=== PATIENT | male | born 1955 | race Caucasian/White ===

== ENCOUNTER 2018-04-25 11:29 | Observation (INO) | payer OTHER ==
[~2018-04-25] VITALS: Ht 174 cm; Wt 72.3 kg
[2018-04-25] MEDS ORDERED: ASPIRIN 81 MG TAB.CHEW PO ONE (11:45)
[2018-04-25 12:02] LABS: BASO % 1 % (0-3); EOS # 0.2 x10^3/uL (0.0-0.7); EOS % 3 % (0-3); HEMATOCRIT 43.6 % (39.0-53.0); HEMOGLOBIN 15.3 g/dL (13.0-17.5); LYMPH # 1.1 x10^3/uL (1.0-4.8); LYMPH % 16 % (24-48); MEAN CORPUSCULAR HEMOGLOBIN 30 pg (25-35); MEAN CORPUSCULAR HGB CONC 35 g/dL (31-37); MEAN CORPUSCULAR VOLUME 85 fL (79-100); MONO # 0.7 x10^3/uL (0.0-1.1); MONO % 10 % (0-9); NEUT # 4.9 x10^3uL (1.8-7.7); NEUT % 70 % (31-73); PLATELET COUNT 198 x10^3/uL (140-400); RED BLOOD COUNT 5.14 x10^6/uL (4.30-5.70); RED CELL DISTRIBUTION WIDTH 14.7 % (11.5-14.5); WHITE BLOOD COUNT 7.1 x10^3/uL (4.0-11.0)
--- NOTE | 2018-04-25 12:19 | EKG ---
[address] [address] Test Date: 2018-04-25 Test Time: 11:31:21 Pat Name: ALEYDA LONDON Department: Room: Gender: M Staff Psychiatrist: [facility] : 1955 Requested By: SERGO YOST Order Number: [id number] Reading MD: Trell Mcdonald MD Measurements Intervals E[place] Rate: 73 P: 62 IA: 182 QRS: -45 QRSD: 106 T: 78 QT: 388 QTc: 431 Interpretive Statements SINUS RHYTHM VENTRICULAR PREMATURE COMPLEX(ES) Electronically Signed On 04-27-2018 16:05:19 CDT by Trell Mcdonald MD
[2018-04-25 12:21] LABS: ALBUMIN 3.9 g/dL (3.4-5.0); ALBUMIN/GLOBULIN RATIO 1.3 (1.0-1.7); CALCIUM 8.9 mg/dL (8.5-10.1); CREATININE 1.3 mg/dL (0.7-1.3); GFR 55.8; MAGNESIUM 1.8 mg/dL (1.8-2.4); POTASSIUM 4.6 mmol/L (3.5-5.1); TOTAL BILIRUBIN 0.5 mg/dL (0.2-1.0)
--- NOTE | 2018-04-25 12:36 | RAD ---
Chest radiograph 04/25/2018 11:38 AM INDICATION: Chest pain, shortness of air COMPARISON: None available TECHNIQUE: Portable upright frontal view of the chest is provided. FINDINGS: The cardiomediastinal silhouette is within normal limits. Median sternotomy changes are present. There are no pleural effusions. There is no pulmonary vascular congestion. There is no pneumothorax. The lungs are clear. No significant osseous abnormality is identified. IMPRESSION: No acute cardiopulmonary process. Electronically signed by: Paige Serrano MD (04/25/2018 12:32 PM) [facility]
--- NOTE | 2018-04-25 12:56 | PHYS DOC ---
Past History Past Medical History: Angina, Anxiety, Depression, Diabetes, Hypertension Past Surgical History: Coronary Bypass Surgery, Knee Replacement, Tonsillectomy Alcohol Use: None Drug Use: None Adult General Chief Complaint Chief Complaint: CHEST PAIN HPI HPI 62-year-old male patient with history of hypertension, coronary artery disease status post CABG and smoking sent from primary care physician office because of chest pain. Patient complaining of aching pain in left side of chest and shoulder for 1.5 months as a mild pain and rated his pain over 10. Patient complaining of episodes of exertional sharp pain that happened once or twice a day and is a last about 40 minutes without shortness of breath, nausea, dizziness, palpitation, fever and chills. Patient complaining of intermittent episodes of bilateral hand numbness during episodes of shortness of breath and states he feels confused and complaining of generalized weakness for the last few days. Patient 324 mg of aspirin at primary care physician office. Patient denies family history of coronary artery disease. Patient had CABG years ago and then seen by a concrete carpenter for the last 3 years. Review of Systems Review of Systems Constitutional: Denies fever or chills, reports generalized weakness[] Eyes: Denies change in visual acuity, redness, or eye pain [] HENT: Denies nasal congestion or sore throat [] Respiratory: Denies cough or shortness of breath [] Cardiovascular: No additional information not addressed in HPI [] GI: Denies abdominal pain, nausea, vomiting, bloody stools or diarrhea [] : Denies dysuria or hematuria [] Musculoskeletal: Denies back pain or joint pain [] Integument: Denies rash or skin lesions [] Neurologic: Denies headache, focal weakness or sensory changes [] Endocrine: Denies polyuria or polydipsia [] All other systems were reviewed and found to be within normal limits, except as documented in this note. Current Medications Current Medications Current Medications Medications (Trade) Dose Ordered Sig/Mayra Start Time Stop Time Status Last Admin Dose Admin Aspirin (Children'S Aspirin) 324 mg 1X ONCE 04/25/18 11:45 04/25/18 11:52 DC Allergies Allergies Allergies Coded Allergies Type Severity Reaction Last Updated Verified codeine Allergy Unknown 04/25/18 Yes Physical Exam Physical Exam Constitutional: Well developed, well nourished, milddistress, non-toxic appearance. [] HENT: Normocephalic, atraumatic, bilateral external ears normal, oropharynx moist, no oral exudates, nose normal. [] Eyes: PERRLA, EOMI, conjunctiva normal, no discharge. [] Neck: Normal range of motion, no tenderness, supple, no stridor. [] Cardiovascular:Heart rate regular rhythm, no murmur [] Lungs & Thorax: Bilateral breath sounds clear to auscultation [] Abdomen: Bowel sounds normal, soft, no tenderness, no masses, no pulsatile masses. [] Skin: Warm, dry, no erythema, no rash. [] Back: No tenderness, no CVA tenderness. [] Extremities: No tenderness, no cyanosis, no clubbing, ROM intact, no edema. [] Neurologic: Alert and oriented X 3, normal motor function, normal sensory function, no focal deficits noted. [] Psychologic: Affect normal, judgement normal, mood normal. [] Current Patient Data Vital Signs Vital Signs Date Time Temp Pulse Resp B/P (MAP) Pulse Ox O2 Delivery O2 Flow Rate FiO2 04/25/18 11:29 97.5 62 14 100 Room Air Lab Results Laboratory Tests Test 04/25/18 11:40 White Blood Count 7.1 x10^3/uL (4.0-11.0) Red Blood Count 5.14 x10^6/uL (4.30-5.70) Hemoglobin 15.3 g/dL (13.0-17.5) Hematocrit 43.6 % (39.0-53.0) Mean Corpuscular Volume 85 fL (79-100) Mean Corpuscular Hemoglobin 30 pg (25-35) Mean Corpuscular Hemoglobin Concent 35 g/dL (31-37) Red Cell Distribution Width 14.7 % (11.5-14.5) H Platelet Count 198 x10^3/uL (140-400) Neutrophils (%) (Auto) 70 % (31-73) Lymphocytes (%) (Auto) 16 % (24-48) L Monocytes (%) (Auto) 10 % (0-9) H Eosinophils (%) (Auto) 3 % (0-3) Basophils (%) (Auto) 1 % (0-3) Neutrophils # (Auto) 4.9 x10^3uL (1.8-7.7) Lymphocytes # (Auto) 1.1 x10^3/uL (1.0-4.8) Monocytes # (Auto) 0.7 x10^3/uL (0.0-1.1) Eosinophils # (Auto) 0.2 x10^3/uL (0.0-0.7) Basophils # (Auto) 0.0 x10^3/uL (0.0-0.2) Prothrombin Time 11.0 SEC (9.4-11.4) Prothrombin Time INR 1.1 (0.9-1.1) PTT 30 SEC (23-33) Sodium Level 127 mmol/L (136-145) L Potassium Level 4.6 mmol/L (3.5-5.1) Chloride Level 94 mmol/L (98-107) L Carbon Dioxide Level 28 mmol/L (21-32) Anion Gap 5 (6-14) L Blood Urea Nitrogen 9 mg/dL (8-26) Creatinine 1.3 mg/dL (0.7-1.3) Estimated GFR (Cockcroft-Gault) 55.8 BUN/Creatinine Ratio 7 (6-20) Glucose Level 126 mg/dL (70-99) H Calcium Level 8.9 mg/dL (8.5-10.1) Magnesium Level 1.8 mg/dL (1.8-2.4) Total Bilirubin 0.5 mg/dL (0.2-1.0) Aspartate Amino Transferase (AST) 23 U/L (15-37) Alanine Aminotransferase (ALT) 25 U/L (16-63) Alkaline Phosphatase 81 U/L (46-116) Creatine Kinase 304 U/L (39-308) Creatine Kinase MB (Mass) 11.8 ng/mL (0.0-3.6) H Creatine Kinase MB Relative Index 3.9 % (0-4) Troponin I Quantitative < 0.017 ng/mL (0-0.055) XA-Tji-S-Type Natriuretic Peptide 1086 pg/mL (0-124) H Total Protein 7.0 g/dL (6.4-8.2) Albumin 3.9 g/dL (3.4-5.0) Albumin/Globulin Ratio 1.3 (1.0-1.7) Lipase 132 U/L (73-393) EKG EKG EKG interpreted by me. EKG at 1131 showed normal sinus rhythm at rate of 73, PVCs, left atrial abnormalities, abnormal left axis deviation, left anterior fascicular block, left ventricular hypertrophy, T-wave abnormality in lateral leads, poor R-wave progress in anteroseptal leads[] Radiology/Procedures Radiology/Procedures [][address] [address] IMAGING REPORT Signed PATIENT: ALEYDA LONDON ACCOUNT: [id number] : 1955 LOCATION: ER AGE: 62 SEX: M EXAM STATUS: REG ER ORD. PHYSICIAN: SERGO YOST MD REASON: chest pain PROCEDURE: PORTABLE CHEST 1V Chest radiograph 04/25/2018 11:38 AM INDICATION: Chest pain, shortness of air COMPARISON: None available TECHNIQUE: Portable upright frontal view of the chest is provided. FINDINGS: The cardiomediastinal silhouette is within normal limits. Median sternotomy changes are present. There are no pleural effusions. There is no pulmonary vascular congestion. There is no pneumothorax. The lungs are clear. No significant osseous abnormality is identified. IMPRESSION: No acute cardiopulmonary process. Electronically signed by: Sathish Hannon MD (04/25/2018 12:32 PM) [facility] DICTATED AND SIGNED BY: SATHISH HANNON MD DATE: 04/25/18 1232 CC: SERGO YOST MD; CHIP ORELLANA MD ~ Course & Med Decision Making Course & Med Decision Making Pertinent Labs and Imaging studies reviewed. (See chart for details) Evaluation of patient in ER showed 62-year-old male patient complaining of chronic chest pain and confusion and generalized weakness. Patient had unremarkable physical exam. Labs showed sodium of 127 and CK-MB of 11.5 unremarkable troponin and CK. Patient chest pain but he was in ER. Plan to admit patient to hospitalist with diagnosis of hyponatremia and chest pain and elevation of CK-MB. Dr. Alvarenga informed at 1255 and agreed with an of admission. Dragon Disclaimer Dragon Disclaimer This electronic medical record was generated, in whole or in part, using a voice recognition dictation system. Departure Departure: Impression: Primary Impression: Hyponatremia Additional Impressions: Chest pain Coronary artery disease Elevated CK-MB level Tobacco abuse Tobacco abuse counseling Disposition: 09 ADMITTED INPATIENT (At 1255) Admitting Physician: German Alvarenga Condition: IMPROVED Referrals: CHIP ORELLANA MD (PCP) Problem Qualifiers SERGO YOST MD Apr 25, 2018 12:56
[2018-04-25] MEDS: IV NORMAL SALINE 1,000ML 500 ML IV SCH ×2 (13:24→21:29)
[2018-04-25 16:17] VITALS: BP 177/79
--- NOTE | 2018-04-25 17:58 | NUR ---
NURSING ADMIT NOTE: Patient arrived to room 117 via cart and accompanied by EMS personnel. Patient was oriented to room, bathroom, lights, call light, bed controls, and TV remote.
[2018-04-25] MEDS ORDERED: NAPR-677 PO (18:09)
[2018-04-25] MEDS ORDERED: METO10TA81 PO (18:09)
[2018-04-25] MEDS ORDERED: CHOL10003 PO (18:09)
[2018-04-25] MEDS ORDERED: CITA20TA6 PO (18:09)
[2018-04-25] MEDS ORDERED: SITA1TAB11 PO (18:09)
[2018-04-25] MEDS ORDERED: SIMV20TA3 PO (18:09)
[2018-04-25 19:00] VITALS: BP 178/62
[2018-04-25] MEDS ORDERED: SIMVASTATIN 20 MG TABLET PO SCH (21:00)
[2018-04-25] MEDS ORDERED: NON FORMULARY ITEM (Sitagliptin Phos/Metformin Hcl (Janumet 50-1,000 Mg Tablet) 1 TAB) PO SCH (21:00)
[2018-04-25] MEDS: METOCLOPRAMIDE 5 MG TABLET PO SCH (21:26)
[2018-04-25] MEDS: CITALOPRAM 20 MG TABLET. PO SCH (21:26)
[2018-04-25 23:00] VITALS: BP_SYST 142; BP_SYST 185; BP_DIAS 52; BP_DIAS 85
[2018-04-26] VITALS (7 sets, daily range): BP systolic 140–202; BP diastolic 72–98
[2018-04-26] MEDS: IV NORMAL SALINE 1,000ML 500 ML IV SCH ×2 (02:20→13:13)
[2018-04-26] MEDS ORDERED: METO25TA4 PO (06:46)
[2018-04-26] MEDS: metFORMIN 500 MG TABLET PO SCH ×2 (08:30→17:41)
[2018-04-26] MEDS: CHOLECALCIFEROL (VITAMIN D3) 1,000 UNIT TABLET PO SCH (08:30)
[2018-04-26] MEDS: METOCLOPRAMIDE 5 MG TABLET PO SCH ×2 (08:30→21:00)
[2018-04-26] MEDS: LINAGLIPTIN 5 MG TABLET PO SCH (08:30)
[2018-04-26] MEDS: METOPROLOL TART IMMED RELEASE 25 MG TABLET PO SCH ×2 (08:32→21:01)
[2018-04-26] MEDS: amLODIPine BESYLATE 10 MG TABLET PO SCH (09:16)
--- NOTE | 2018-04-26 11:26 | PDOC2 ---
CONSULT Date of Admission DATE: 04/26/18 TIME: 11:23 Reason for Consult: cp Problem List Problems Medical Problems: (1) Chest pain Status: Acute (2) Coronary artery disease Status: Acute (3) Elevated CK-MB level Status: Acute (4) Hyponatremia Status: Acute (5) Tobacco abuse Status: Acute (6) Tobacco abuse counseling Status: Acute Cardiovascular: CAD, HTN, hyperipidemia, Other (carotid stenosis) Endocrine: Diabetes Past Surgical History knee surgery, CABG 5 years ago Family History premature coronary disease in brother, parents with CAD Social History + smoker, denies significant ETOH or illicit drugs. Current Medications Current Medications Aspirin (Children'S Aspirin) 324 mg 1X ONCE PO ; Start 04/25/18 at 11:45; Stop 04/25/18 at 11:52; Status DC Sodium Chloride 500 ml @ 75 mls/hr Q6H40M IV Last administered on 04/25/18at 21 :29; Start 04/25/18 at 13:00; Stop 04/26/18 at 12:59 Vitamin D (Vitamin D3) 1,000 unit DAILY PO Last administered on 04/26/18at 08:30 ; Start 04/26/18 at 09:00 Citalopram Hydrobromide (CeleXA) 20 mg HS PO Last administered on 04/25/18at 21: 26; Start 04/25/18 at 21:00 Metoclopramide HCl (Reglan) 5 mg BID PO Last administered on 04/26/18at 08:30; Start 04/25/18 at 21:00 Simvastatin (Zocor) 20 mg HS PO Last administered on 04/25/18at 21:26; Start at 21:00 Non-Formulary Medication (Sitagliptin Phos/Metformin Hcl (Janumet 50-1,000 Mg Tablet)) 1 tab BID PO ; Start 04/25/18 at 21:00; Stop 04/25/18 at 21:00; Status DC Metformin HCl (Glucophage) 1,000 mg BIDWMEALS PO Last administered on at 08:30; Start 04/26/18 at 08:00 Linagliptin (Tradjenta) 5 mg DAILY PO Last administered on 04/26/18at 08:30; Start 04/26/18 at 09:00 Metoprolol Tartrate (Lopressor) 12.5 mg BID PO Last administered on 04/26/18at 08:32; Start 04/26/18 at 09:00 Amlodipine Besylate (Norvasc) 10 mg DAILY PO Last administered on 04/26/18at 09: 16; Start 04/26/18 at 09:00 Active Scripts Active Reported Metoprolol Tartrate 25 Mg Tablet 12.5 Mg PO BID Vitamin D3 (Cholecalciferol (Vitamin D3)) 1,000 Unit Tablet 1 Tab PO DAILY Naproxen Sodium 550 Mg Tablet 550 Mg PO Citalopram Hbr (Citalopram Hydrobromide) 20 Mg Tablet 20 Mg PO HS Reglan (Metoclopramide Hcl) 10 Mg Tablet 5 Mg PO BID Simvastatin 20 Mg Tablet 20 Mg PO BID Janumet 50-1,000 Mg Tablet (Sitagliptin Phos/Metformin Hcl) 1 Each Tablet 1 Tab PO BID Allergies: Coded Allergies: codeine (Verified Allergy, Unknown, 04/25/18) Review of System as per HPI or negative General: Alert, Oriented X3, Cooperative, No acute distress HEENT: Atraumatic, EOMI, Mucous membr. moist/pink, Other (No carotid bruits) Heart: Regular rate (irregular rhythm), Normal S1, Normal S2 Abdomen: Normal bowel sounds, Soft, No tenderness Extremities: No cyanosis, No edema, Normal pulses Neuro: Normal speech, Strength at 5/5 X4 ext Psych/Mental Status: Mental status NL, Mood NL VITALS Vital Signs Date Time Temp Pulse Resp B/P (MAP) Pulse Ox O2 Delivery O2 Flow Rate FiO2 04/26/18 11:08 97.6 75 20 192/95 (127) 96 Room Air Labs Laboratory Tests Test 04/25/18 11:40 04/25/18 15:15 04/25/18 17:18 04/25/18 18:50 White Blood Count 7.1 x10^3/uL (4.0-11.0) Red Blood Count 5.14 x10^6/uL (4.30-5.70) Hemoglobin 15.3 g/dL (13.0-17.5) Hematocrit 43.6 % (39.0-53.0) Mean Corpuscular Volume 85 fL (79-100) Mean Corpuscular Hemoglobin 30 pg (25-35) Mean Corpuscular Hemoglobin Concent 35 g/dL (31-37) Red Cell Distribution Width 14.7 % (11.5-14.5) Platelet Count 198 x10^3/uL (140-400) Neutrophils (%) (Auto) 70 % (31-73) Lymphocytes (%) (Auto) 16 % (24-48) Monocytes (%) (Auto) 10 % (0-9) Eosinophils (%) (Auto) 3 % (0-3) Basophils (%) (Auto) 1 % (0-3) Neutrophils # (Auto) 4.9 x10^3uL (1.8-7.7) Lymphocytes # (Auto) 1.1 x10^3/uL (1.0-4.8) Monocytes # (Auto) 0.7 x10^3/uL (0.0-1.1) Eosinophils # (Auto) 0.2 x10^3/uL (0.0-0.7) Basophils # (Auto) 0.0 x10^3/uL (0.0-0.2) Prothrombin Time 11.0 SEC (9.4-11.4) Prothromb Time International Ratio 1.1 (0.9-1.1) Activated Partial Thromboplast Time 30 SEC (23-33) Sodium Level 127 mmol/L (136-145) Potassium Level 4.6 mmol/L (3.5-5.1) Chloride Level 94 mmol/L (98-107) Carbon Dioxide Level 28 mmol/L (21-32) Anion Gap 5 (6-14) Blood Urea Nitrogen 9 mg/dL (8-26) Creatinine 1.3 mg/dL (0.7-1.3) Estimated GFR (Cockcroft-Gault) 55.8 BUN/Creatinine Ratio 7 (6-20) Glucose Level 126 mg/dL (70-99) Calcium Level 8.9 mg/dL (8.5-10.1) Magnesium Level 1.8 mg/dL (1.8-2.4) Total Bilirubin 0.5 mg/dL (0.2-1.0) Aspartate Amino Transf (AST/SGOT) 23 U/L (15-37) Alanine Aminotransferase (ALT/SGPT) 25 U/L (16-63) Alkaline Phosphatase 81 U/L (46-116) Creatine Kinase 304 U/L (39-308) Creatine Kinase MB (Mass) 11.8 ng/mL (0.0-3.6) Creatine Kinase MB Relative Index 3.9 % (0-4) Troponin I Quantitative < 0.017 ng/mL (0-0.055) < 0.017 ng/mL (0-0.055) < 0.017 ng/mL (0-0.055) DD-Vmb-H-Type Natriuretic Peptide 1086 pg/mL (0-124) Total Protein 7.0 g/dL (6.4-8.2) Albumin 3.9 g/dL (3.4-5.0) Albumin/Globulin Ratio 1.3 (1.0-1.7) Lipase 132 U/L (73-393) Glucose (Fingerstick) 84 mg/dL (70-99) Test 04/26/18 07:25 Glucose (Fingerstick) 90 mg/dL (70-99) Images EKG sinus rhythm, PVCs, LAFB, non specific changes CXR - no acute abn Assessment/Plan 1. chest pain -[place] ruled out. No acute EKG changes. 2. CAD, CABG status 5 years ago. 3. carotid disease 4. accelerated hypertension 5. hyperlipidemia 6. diabetes mellitus 7. tobaccoism Suggest echocardiogram for LV function. Add lisinopril for blood pressure control in addition to norvasc which was added this am. Hydralazine PRN. Add aspirin, check lipids. Change zocor to lipitor. Carotid sono. Suggest MPI in am to eval for any progression of coronary disease unless significant abnormalities on echo or other testing requiring more invasive evaluation. Smoking cessation advised. MINERVA [facility] NURSE Apr 26, 2018 11:26
[2018-04-26] MEDS ORDERED: hydrALAZINE 20 MG/ML VIAL. IV PRN (11:45)
[2018-04-26] MEDS: ASPIRIN ENTERIC COATED 81 MG TABLET.DR. PO SCH (13:09)
[2018-04-26] MEDS: LISINOPRIL 5 MG TABLET. PO SCH (13:10)
[2018-04-26 14:47] LABS: CALCIUM 8.9 mg/dL (8.5-10.1); CREATININE 1.2 mg/dL (0.7-1.3); GFR 61.1; POTASSIUM 4.6 mmol/L (3.5-5.1)
--- NOTE | 2018-04-26 14:55 | HP ---
ADMIT DATE: 04/25/2018 HISTORY OF PRESENT ILLNESS: The patient stability is a 62-year-old male patient who presented to the Emergency Room with a complaint of recurrent episode of chest pain, mostly in the left side of the chest and shoulder for the last 1-1/2 months as a mild pain. He also complained of episodes of exertional chest pain that happened once or twice a day, and lasts up to 40 minutes without shortness of breath, nausea, vomiting, palpitation, fever, chills or diaphoresis. He also complained of episode of bilateral hand numbness during episode of shortness of breath and stated that he feels confused and complaining of generalized weakness for the last few days. He received 325 mg of aspirin from his primary care physician and was sent to the Emergency Room for evaluation. PAST MEDICAL HISTORY: Significant for hypertension, hyperlipidemia, has also coronary artery disease, status post CABG about 5 years ago. He has also history of diverticulitis. PAST SURGICAL HISTORY: Significant for tonsillectomy and right knee surgery and left carotid endarterectomy, coronary artery bypass graft surgery, EGD, and colonoscopy. ALLERGIES: HE IS ALLERGIC TO CODEINE. MEDICATIONS: He was on following medications: He is on simvastatin 20 mg at bedtime, metoprolol tartrate 25 mg twice a day. He is on naproxen 500 mg twice a day, citalopram hydrobromide 20 mg once a day, metoclopramide 10 mg twice a day, sitagliptin phosphate/metformin for Januvia mg twice a day and cholecalciferol 1000 international units once a day. FAMILY HISTORY: He has 4 sisters and 1 brother. His brother is known to have hypertension. One sister has diabetes and the other sister has multiple sclerosis. His father at age of 75 because of complication of Parkinson's disease and diabetes mellitus. His mother is still alive at age of ____ and is known to have diabetes and congestive heart failure. SOCIAL HISTORY: He is , has 2 daughters and one son. One of his daughters and grandchildren live with him. He smoked for 30 years before his open heart surgery, quit for 4 years and started smoking again about 2 years ago after his has , he smokes about half-a-pack a day. Does not drink alcohol. 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 REVIEW OF SYSTEMS: The patient denied any blurring of vision, cataract, glaucoma or macular degeneration. Denied any earache, tinnitus or sensorineural deafness. Denied any nosebleeds, stuffy nose or postnasal drip. Denied any sore throat, sore tongue, toothache, hoarseness. He denied any nausea, vomiting, diarrhea or constipation. Denied any hematemesis, melena or hematochezia. Denied any dysuria, frequency or hematuria. Denied any chest pain or shortness of breath. Denied any dysuria, frequency, or hematuria. Did complain of recurrent episode of chest pain and shortness of breath but denied any orthopnea or paroxysmal nocturnal dyspnea. Denied any cough, phlegm or hemoptysis. Denied any nausea or vomiting. Denied any diaphoresis. PHYSICAL EXAMINATION: GENERAL: On arrival to the Emergency Room, he looked well and was clearly in no apparent respiratory distress. He was pale, but no jaundice, cyanosis, or thyromegaly. No jugular venous distension. No limb edema. VITAL SIGNS: His heart rate was 62, blood pressure was 178/93, his temperature was 97.5, respiratory rate was 14, and oxygen saturation was 100% on room air. HEENT: Showed normocephalic, atraumatic. NECK: Supple. HEART: Showed normal first and second heart sounds with no gallop, rub or murmur. CHEST: Clear to auscultation. No crepitation or rhonchi. ABDOMEN: Distended, soft, nontender. No guarding or rigidity. No organomegaly. All hernial orifice intact. Bowel sounds normal. NEUROLOGIC: He was awake, alert, responding appropriately. All his cranial nerves are intact. EXTREMITIES: He moves extremities without difficulty, ambulates without assistance or assistive devices. LABORATORY DATA: Showed a serum sodium of 127, potassium 4.6, chloride 94, bicarbonate 28, anion gap of 5, BUN 9, creatinine 1.3, estimated GFR was 56 mL per minute, his glucose 126, calcium was 8.9, magnesium was 1.8. Total bilirubin, AST, ALT, alkaline phosphatase were normal. His total protein 7, albumin 3.9. His white cell count was 7100, hemoglobin 15, hematocrit 44, MCV 85 and platelet count of 198,000 with normal manual differential. His first set of cardiac enzymes showed troponin to be less than 0.17 ng/mL. ASSESSMENT AND PLAN: The patient was admitted to do 2 more sets of cardiac enzymes, check his fasting lipid profile and consult the cardiology team apparently has not had any stress test since he has had his bypass surgery. RAJNI BAKER MD DR: HILARIO/soni JOB#: [id number] / [id number]
--- NOTE | 2018-04-26 16:10 | NUR ---
Pt has denies chest pain at this time. BP has been elevated and new medications given and explained to pt. Pt to have a stress test and carotid dopplers tomorrow. Will monitor.
--- NOTE | 2018-04-26 17:19 | CARD ---
MR#: [id number] Date of Study: 04/26/2018 Ordering Physician: RAJNI BAKER, Referring Physician: RAJNI BAKER, Abilio: TYREE Durán APPROVED REPORT EXAM: Two-dimensional and M-mode echocardiogram with Doppler and color Doppler. Other Information Quality : GoodHR: 74bpm Rhythm : PVC'sTechnically limited study due to off axis heart. INDICATION Cardiac Disease: CAD Chest Pain RISK FACTORS Smoking 2D DIMENSIONS Left Atrium(2D)3.8 (1.6-4.0cm)IVSd1.4 (0.7-1.1cm) Aortic Root(2D)2.7 (2.0-3.7cm)LVDd4.1 (3.9-5.9cm) LVOT Diameter2.0 (1.8-2.4cm)PWd1.6 (0.7-1.1cm) LVDs2.5 (2.5-4.0cm)FS (%) 37.8 % SV50.1 ml Aortic Valve AoV Peak Jadon.141.3cm/sAoV VTI32.4cm AO Peak GR.8.0mmHgLVOT Peak Jadon.83.8cm/s LVOT VTI 20.34cmAO Mean GR.4mmHg PAOLA (VMAX)1.43xh2NQD (VTI)1.88cm2 Mitral Valve MV E Fcgywekw964.3cm/sMV DECEL [id number] MV A Jjpviawp02.4cm/sE/A Ratio1.2 Pulmonary Valve PV Peak Jmbrilil87.3cm/sPV Peak Grad.4mmHg Pulmonary Vein S1 Husnpxze66.3cm/sD2 Otldnwzq35.2cm/s LEFT VENTRICLE The left ventricle is normal size. There is mild concentric left ventricular hypertrophy. The left ve ntricular systolic function is normal and the ejection fraction is within normal range. Left ventricu lar ejection fraction is 55-60% There is normal LV segmental wall motion. Transmitral Doppler flow pa ttern is abnormal. RIGHT VENTRICLE The right ventricle is normal size. The right ventricular systolic function is normal. ATRIA The left atrium size is normal. The right atrium size is normal. The interatrial septum is intact wit h no evidence for an atrial septal defect or patent foramen ovale as noted on 2-D or Doppler imaging. AORTIC VALVE The aortic valve is mildly sclerotic. Doppler and Color Flow revealed no significant aortic regurgita tion. There is no significant aortic valvular stenosis. There is no aortic valvular vegetation. MITRAL VALVE The mitral valve is mildly thickened. There is no evidence of mitral valve prolapse. There is no mitr al valve stenosis. Doppler and Color-flow revealed trace mitral regurgitation. TRICUSPID VALVE The tricuspid valve is not well visualized. Doppler and Color Flow revealed no tricuspid valve regurg itation noted. There is no tricuspid valve prolapse or vegetation. There is no tricuspid valve stenos is. PULMONIC VALVE The pulmonic valve is not well visualized. Doppler and Color Flow revealed no pulmonic valvular regur gitation. There is no pulmonic valvular stenosis. GREAT VESSELS The aortic root is normal in size. The IVC is dilated in size and collapses >50% with inspiration. PERICARDIAL EFFUSION There is no pleural effusion. There is no evidence of significant pericardial effusion. Critical Notification Critical Value: No <Conclusion> The left ventricle is normal size. The left ventricular systolic function is normal and the ejection fraction is within normal range. Left ventricular ejection fraction is 55-60% There is mild concentric left ventricular hypertrophy. There is no significant aortic valvular stenosis. Doppler and Color Flow revealed no significant aortic regurgitation. Doppler and Color-flow revealed trace mitral regurgitation. Doppler and Color Flow revealed no tricuspid valve regurgitation noted. Signed by : Geremias Palacio MD Electronically Approved : 04/26/2018 17:19:11
--- NOTE | 2018-04-26 20:10 | PN ---
DATE: 04/26/2018 SUBJECTIVE: The patient is resting slightly propped up in bed, no apparent distress. He is awake, alert. On questioning him, he has no further episode of chest pain. He has had 3 sets of cardiac enzymes, showed troponin to be less than 0.017. He was evaluated by the Cardiology team and the plan is to arrange for him to have an echocardiogram and nuclear stress test tomorrow. His blood pressure was suboptimally controlled, so lisinopril was added. PHYSICAL EXAMINATION: GENERAL: When I examined him this afternoon, he looked well and was clearly in no apparent respiratory distress, pale, but no jaundice, cyanosis, or thyromegaly. No jugular venous distension. No lower limb edema. VITAL SIGNS: His heart rate was 75, blood pressure was 192/95, temperature was 97.6, respiratory rate 20, and oxygen saturation was 96%. HEAD, EYES, EARS, NOSE AND THROAT: Showed normocephalic, atraumatic. NECK: Supple. HEART: Showed normal first and second sounds. No gallop, rub or murmur. CHEST: Clear to auscultation. No crepitation or rhonchi. ABDOMEN: Distended, soft, nontender. NEUROLOGIC: He was awake, alert, responding appropriately. All cranial nerves intact. He moves extremities without difficulty, ambulates without assistance or assistive devices. LABORATORY WORK: Showed he has 2 more sets of cardiac enzymes that ruled out myocardial infarction. His blood sugar seems to be reasonably controlled. ASSESSMENT: 1. Chest pain with negative cardiac enzymes. 2. Coronary artery disease status post coronary artery bypass graft surgery. 3. Hyponatremia, most likely due to inappropriate antidiuretic hormone secretion secondary to SSRI. 4. Continued tobacco abuse. 5. Hyperlipidemia. 6. Peripheral arterial disease. 7. He is status post left carotid artery endarterectomy. 8. Type 2 diabetes. PLAN: My plan is to repeat his BMP stat this afternoon and check his fasting lipid profile. Await the result of echocardiogram and nuclear stress test tomorrow. RAJNI BAKER MD DR: HILARIO/soni JOB#: [id number] / [id number]
[2018-04-26] MEDS ORDERED: ATORVASTATIN CALCIUM 20 MG TABLET PO SCH (21:00)
[2018-04-26] MEDS: CITALOPRAM 20 MG TABLET. PO SCH (21:01)
[2018-04-27 05:53] VITALS: BP 168/88
[2018-04-27 06:30] LABS: CALCIUM 8.9 mg/dL (8.5-10.1); GFR 75.5; MAGNESIUM 1.7 mg/dL (1.8-2.4)
[2018-04-27] MEDS ORDERED: REGADENOSON 0.4 MG/5 ML DISP.SYRIN. IV ONE (08:30)
[2018-04-27] MEDS ORDERED: LISINOPRIL 5 MG TABLET. PO SCH (09:00)
--- NOTE | 2018-04-27 09:36 | RAD ---
MR#: [id number] Date of Study: 04/26/2018 Ordering Physician: MINERVA ESTRADA, Referring Physician: RAJNI BAKER Tech: Tiffany Blevins RDMS, RVT, RTR APPROVED REPORT Patient Location: IN-PATIENT Laterality:Bilateral Indications Faulkner scale images demonstrate moderate and mild plaque at the right and left carotid bulbs, respectiv jeronimo. Spectral wave forms and color doppler in the bilateral ICA reveals 0 to less than 50% stenosis. The bilateral external carotid vessels demonstrate normal velocity profiles. Bilateral vert velocities are antegrade. ICA/CCA ratios are normal bilaterally. Critical Notification Critical Value: No <Conclusion> 1. Mild bilateral less than 50% ICA disease. Signed by : Trell Mcdonald, Electronically Approved : 04/27/2018 09:35:53
[2018-04-27] MEDS: LISINOPRIL 5 MG TABLET. PO SCH (10:13)
[2018-04-27] MEDS: amLODIPine BESYLATE 10 MG TABLET PO SCH (10:13)
[2018-04-27] MEDS: metFORMIN 500 MG TABLET PO SCH (10:13)
[2018-04-27] MEDS: CHOLECALCIFEROL (VITAMIN D3) 1,000 UNIT TABLET PO SCH (10:14)
[2018-04-27] MEDS: ASPIRIN ENTERIC COATED 81 MG TABLET.DR. PO SCH (10:14)
[2018-04-27] MEDS: LINAGLIPTIN 5 MG TABLET PO SCH (10:14)
[2018-04-27] MEDS: METOCLOPRAMIDE 5 MG TABLET PO SCH (10:14)
[2018-04-27] MEDS: METOPROLOL TART IMMED RELEASE 25 MG TABLET PO SCH (10:15)
[2018-04-27 10:20] VITALS: BP 154/80
--- NOTE | 2018-04-27 11:04 | PDOC ---
PROGRESS NOTES Diagnosis Problem Problems Medical Problems: (1) Chest pain Status: Acute (2) Coronary artery disease Status: Acute (3) Elevated CK-MB level Status: Acute (4) Hyponatremia Status: Acute (5) Tobacco abuse Status: Acute (6) Tobacco abuse counseling Status: Acute Assessment Problems Medical Problems: (1) Chest pain Status: Acute (2) Coronary artery disease Status: Acute (3) Elevated CK-MB level Status: Acute (4) Hyponatremia Status: Acute (5) Tobacco abuse Status: Acute (6) Tobacco abuse counseling Status: Acute 1. chest pain -[place] ruled out. No acute EKG changes. MPI today. 2. CAD, CABG status 5 years ago. 3. carotid disease - Mild bilateral less than 50% ICA disease. 4. accelerated hypertension - improving. increase ACEI. 5. hyperlipidemia - lipids pending, continue statin 6. diabetes mellitus - per PCP 7. tobaccoism - cessation encouraged. Subjective no further chest pain. no palpitations, no dyspnea, no lightheadedness or palpitations. Objective Vital Signs Date Time Temp Pulse Resp B/P (MAP) Pulse Ox O2 Delivery O2 Flow Rate FiO2 04/27/18 10:20 97.6 86 20 154/80 (104) 97 Room Air Intake and Output 04/27/18 07:00 Intake Total 2250 ml Output Total 2675 ml Balance -425 ml Intake Oral 1780 ml IV Total 470 ml Output Urine Total 2675 ml # Voids 3 Abdomen: Normal bowel sounds, Soft, No tenderness Heart: Regular rate, Normal S1, Normal S2 Extremities: No cyanosis, No edema, Normal pulses General: Alert, Oriented X3, Cooperative, No acute distress Lungs: Clear to auscultation, Normal air movement Neuro: Normal speech, Strength at 5/5 X4 ext Psych/Mental Status: Mental status NL, Mood NL Review of Relevant I have reviewed the following items ashley (where applicable) has been applied. Labs Laboratory Tests Test 04/25/18 11:40 04/25/18 15:15 04/25/18 17:18 04/25/18 18:50 White Blood Count 7.1 x10^3/uL (4.0-11.0) Red Blood Count 5.14 x10^6/uL (4.30-5.70) Hemoglobin 15.3 g/dL (13.0-17.5) Hematocrit 43.6 % (39.0-53.0) Mean Corpuscular Volume 85 fL (79-100) Mean Corpuscular Hemoglobin 30 pg (25-35) Mean Corpuscular Hemoglobin Concent 35 g/dL (31-37) Red Cell Distribution Width 14.7 % (11.5-14.5) Platelet Count 198 x10^3/uL (140-400) Neutrophils (%) (Auto) 70 % (31-73) Lymphocytes (%) (Auto) 16 % (24-48) Monocytes (%) (Auto) 10 % (0-9) Eosinophils (%) (Auto) 3 % (0-3) Basophils (%) (Auto) 1 % (0-3) Neutrophils # (Auto) 4.9 x10^3uL (1.8-7.7) Lymphocytes # (Auto) 1.1 x10^3/uL (1.0-4.8) Monocytes # (Auto) 0.7 x10^3/uL (0.0-1.1) Eosinophils # (Auto) 0.2 x10^3/uL (0.0-0.7) Basophils # (Auto) 0.0 x10^3/uL (0.0-0.2) Prothrombin Time 11.0 SEC (9.4-11.4) Prothromb Time International Ratio 1.1 (0.9-1.1) Activated Partial Thromboplast Time 30 SEC (23-33) Sodium Level 127 mmol/L (136-145) Potassium Level 4.6 mmol/L (3.5-5.1) Chloride Level 94 mmol/L (98-107) Carbon Dioxide Level 28 mmol/L (21-32) Anion Gap 5 (6-14) Blood Urea Nitrogen 9 mg/dL (8-26) Creatinine 1.3 mg/dL (0.7-1.3) Estimated GFR (Cockcroft-Gault) 55.8 BUN/Creatinine Ratio 7 (6-20) Glucose Level 126 mg/dL (70-99) Calcium Level 8.9 mg/dL (8.5-10.1) Magnesium Level 1.8 mg/dL (1.8-2.4) Total Bilirubin 0.5 mg/dL (0.2-1.0) Aspartate Amino Transf (AST/SGOT) 23 U/L (15-37) Alanine Aminotransferase (ALT/SGPT) 25 U/L (16-63) Alkaline Phosphatase 81 U/L (46-116) Creatine Kinase 304 U/L (39-308) Creatine Kinase MB (Mass) 11.8 ng/mL (0.0-3.6) Creatine Kinase MB Relative Index 3.9 % (0-4) Troponin I Quantitative < 0.017 ng/mL (0-0.055) < 0.017 ng/mL (0-0.055) < 0.017 ng/mL (0-0.055) FX-Vsg-I-Type Natriuretic Peptide 1086 pg/mL (0-124) Total Protein 7.0 g/dL (6.4-8.2) Albumin 3.9 g/dL (3.4-5.0) Albumin/Globulin Ratio 1.3 (1.0-1.7) Lipase 132 U/L (73-393) Glucose (Fingerstick) 84 mg/dL (70-99) Test 04/26/18 07:25 04/26/18 11:41 04/26/18 14:25 04/26/18 16:37 Glucose (Fingerstick) 90 mg/dL (70-99) 129 mg/dL (70-99) 98 mg/dL (70-99) Sodium Level 131 mmol/L (136-145) Potassium Level 4.6 mmol/L (3.5-5.1) Chloride Level 97 mmol/L (98-107) Carbon Dioxide Level 26 mmol/L (21-32) Anion Gap 8 (6-14) Blood Urea Nitrogen 11 mg/dL (8-26) Creatinine 1.2 mg/dL (0.7-1.3) Estimated GFR (Cockcroft-Gault) 61.1 Glucose Level 119 mg/dL (70-99) Calcium Level 8.9 mg/dL (8.5-10.1) Test 04/26/18 20:41 04/27/18 05:50 04/27/18 08:10 Glucose (Fingerstick) 90 mg/dL (70-99) 97 mg/dL (70-99) Sodium Level 130 mmol/L (136-145) Potassium Level 4.0 mmol/L (3.5-5.1) Chloride Level 97 mmol/L (98-107) Carbon Dioxide Level 27 mmol/L (21-32) Anion Gap 6 (6-14) Blood Urea Nitrogen 10 mg/dL (8-26) Creatinine 1.0 mg/dL (0.7-1.3) Estimated GFR (Cockcroft-Gault) 75.5 Glucose Level 86 mg/dL (70-99) Calcium Level 8.9 mg/dL (8.5-10.1) Magnesium Level 1.7 mg/dL (1.8-2.4) Medications Current Medications Aspirin (Children'S Aspirin) 324 mg 1X ONCE PO ; Start 04/25/18 at 11:45; Stop 04/25/18 at 11:52; Status DC Sodium Chloride 500 ml @ 75 mls/hr Q6H40M IV Last administered on 04/26/18at 13 :13; Start 04/25/18 at 13:00; Stop 04/26/18 at 12:59; Status DC Vitamin D (Vitamin D3) 1,000 unit DAILY PO Last administered on 04/27/18at 10:14 ; Start 04/26/18 at 09:00 Citalopram Hydrobromide (CeleXA) 20 mg HS PO Last administered on 04/26/18at 21: 01; Start 04/25/18 at 21:00 Metoclopramide HCl (Reglan) 5 mg BID PO Last administered on 04/27/18at 10:14; Start 04/25/18 at 21:00 Simvastatin (Zocor) 20 mg HS PO Last administered on 04/25/18at 21:26; Start at 21:00; Stop 04/26/18 at 11:44; Status DC Non-Formulary Medication (Sitagliptin Phos/Metformin Hcl (Janumet 50-1,000 Mg Tablet)) 1 tab BID PO ; Start 04/25/18 at 21:00; Stop 04/25/18 at 21:00; Status DC Metformin HCl (Glucophage) 1,000 mg BIDWMEALS PO Last administered on at 10:13; Start 04/26/18 at 08:00 Linagliptin (Tradjenta) 5 mg DAILY PO Last administered on 04/27/18at 10:14; Start 04/26/18 at 09:00 Metoprolol Tartrate (Lopressor) 12.5 mg BID PO Last administered on 04/27/18at 10:15; Start 04/26/18 at 09:00 Amlodipine Besylate (Norvasc) 10 mg DAILY PO Last administered on 04/27/18at 10: 13; Start 04/26/18 at 09:00 Aspirin (Aspirin Enteric Coated) 81 mg DAILYWBKFT PO Last administered on at 10:14; Start 04/26/18 at 12:00 Lisinopril (Prinivil) 5 mg DAILY PO ; Start 04/27/18 at 09:00; Stop 04/27/18 at 09:00; Status DC Hydralazine HCl (Apresoline) 10 mg PRN Q4HRS PRN IV ELEVATED BP, SEE COMMENTS; Start 04/26/18 at 11:45 Atorvastatin Calcium (Lipitor) 20 mg QHS PO Last administered on 04/26/18at 21: 00; Start 04/26/18 at 21:00 Lisinopril (Prinivil) 5 mg DAILY PO Last administered on 04/27/18at 10:13; Start 04/26/18 at 13:00 Regadenoson (Lexiscan) 0.4 mg 1X ONCE IV Last administered on 04/27/18at 08:30 ; Start 04/27/18 at 08:30; Stop 04/27/18 at 08:31; Status DC Active Scripts Active Reported Metoprolol Tartrate 25 Mg Tablet 12.5 Mg PO BID Vitamin D3 (Cholecalciferol (Vitamin D3)) 1,000 Unit Tablet 1 Tab PO DAILY Naproxen Sodium 550 Mg Tablet 550 Mg PO Citalopram Hbr (Citalopram Hydrobromide) 20 Mg Tablet 20 Mg PO HS Reglan (Metoclopramide Hcl) 10 Mg Tablet 5 Mg PO BID Simvastatin 20 Mg Tablet 20 Mg PO BID Janumet 50-1,000 Mg Tablet (Sitagliptin Phos/Metformin Hcl) 1 Each Tablet 1 Tab PO BID Vitals/I & O Vital Sign - Last 24 Hours 04/26/18 04/26/18 04/26/18 04/26/18 11:08 13:10 14:21 19:26 Temp 97.6 98.1 Pulse 75 75 73 74 Resp 20 20 18 B/P (MAP) 192/95 (127) 192/95 176/87 (116) 140/74 (96) Pulse Ox 96 96 97 O2 Delivery Room Air Room Air Room Air 04/26/18 04/26/18 04/26/18 04/27/18 19:55 21:01 23:17 05:53 Temp 98.1 98.0 Pulse 74 71 64 Resp 18 20 B/P (MAP) 140/74 151/72 (98) 168/88 (114) Pulse Ox 96 96 O2 Delivery Room Air Room Air Room Air 04/27/18 04/27/18 04/27/18 04/27/18 08:00 10:13 10:13 10:15 Pulse 64 64 64 B/P (MAP) 168/88 168/88 168/88 O2 Delivery Room Air 04/27/18 10:20 Temp 97.6 Pulse 86 Resp 20 B/P (MAP) 154/80 (104) Pulse Ox 97 O2 Delivery Room Air Intake and Output 04/26/18 04/26/18 04/27/18 15:00 23:00 07:00 Intake Total 1120 ml 240 ml 890 ml Output Total 2000 ml 675 ml Balance -880 ml 240 ml 215 ml MINERVA ESTRADA APRN Apr 27, 2018 11:04
--- NOTE | 2018-04-27 14:06 | RAD ---
MR#: [id number] Date of Study: 04/27/2018 Ordering Physician: MINERVA ESTRADA, Referring Physician: ANALY BERGMAN Tech: CECY Macedo APPROVED REPORT Test Type: Pharmacological Stress Nurse/Tech: CECY Macedo Test Indications: Chest pain - CAD Cardiac History: CABG 2012 Medications: see EHR Medical History: see EHR Resting ECG: SR PVCs LEFT AXIS NS ST/T CHANGES Resting Heart Rate: 69 bpm Resting Blood Pressure: 141/72mmHg Pretest Chest Pain: None Nurse/Tech Notes Consent: The procedure was explained to the patient in lay terms. Informed consent was witnessed. Noam eout was entered into 20x200. History and Stress Test performed by CECY Macedo Pharm. Details Pharmacologic stress testing was performed using 0.4mg per 5ml of regadenoson given intravenously ove r 7-10 seconds. POST EXERCISE Reason for Termination: Infusion complete Max HR: 91 bpm Max Blood Pressure: 151/69mmHg Blood Pressure response to exercise: Normal blood pressure response during stress. Chest Pain: No. INTERPRETATION Stress EKG Conclusion: Baseline EKG showed sinus rhythm. No ischemic changes at peak stress. Few PV C's without any significant arrhythmias. Imaging Protocol IMAGE PROTOCOL: Rest Tc-99m/stress Tc-99m 1 day Rest: Stress: Viability: Radiopharm.Tc99m [id number] Sestamibi Dose11.6mCi 33.3mCi Duration 15min. 10min. Img Date 04/27/2018 04/27/2018 Inj-Img [id number]. 60min. Rest Admin Site:IV - Left AntecubitalAdministrator: CECY Macedo Stress Admin Site: IV - Left AntecubitalAdministrator: CECY Macedo STRESS DATA End Diast. Vol.133.0mlAv. Heart Rate38.0bpm LVEDV index BSA3.0mlCardiac Output0.1L/min End Syst. Vol.53.0mlCO Index BSA3.0L/min LVESV index BSA1.0mlMyocardial Jelo303.0g Eject. Cxgjkkuo14.0% Stress Rates Pk. Fill Rate1.66EDV/secLVtime Pk. Fill 304.85msec Pk. Empty Rate2.05ESV/secLVtime Pk. Yzwfu713.03msec /3 Pk. Fill0.73EDV/sec Stress Scores Regional WT3.00Summed WT23.00 Regional WM0.00Summed WM19.00 LV Perfusion Scintigraphic images showed mixed perfusion defect involving the mid to distal anterior and apical wa lls consistent with small infarct and small to moderate amount of ischemia. Wall Motion Abnormal septal wall motion probably from postoperative state. Ejection fraction calculated at 60%. LV Perf. Quant 17 Seg. SSS5.00 17 Seg. SRS9.00 17 Seg. SDS0.00 Stress Defect Extent (% LAD)25.00Rest Defect Extent (% LAD)28.10Rev. Defect Extent (% LAD)10.60 Stress Defect Extent (% LCX) 0.00Rest Defect Extent (% LCX)1.30Rev. Defect Extent (% LCX)0.00 Stress Defect Extent (% RCA)0.00Rest Defect Extent (% RCA)7.80Rev. Defect Extent (% RCA)0.00 Stress Defect Extent (% HOLLIS)11.30Rest Defect Extent (% HOLLIS)18.90Rev. Defect Extent (% HOLLIS)5.40 Conclusion 1. Regadenoson cardioisotope stress test showed small infarct and small to moderate amount of ischemi a involving the mid to distal anterior wall and apical wall. 2. Abnormal septal wall motion probably from postoperative state. Ejection fraction calculated at 60% . 3. Intermediate risk for cardiac events. Signed by : Denver Flannery, Electronically Approved : 04/27/2018 14:05:44
--- NOTE | 2018-04-27 15:41 | NUR ---
NSG NOTE; DISCHARGE VERBAL AND WRITTEN DISCHARGE INSTRUCTIONS GIVEN TO PT WITH VERBAL UNDERSTANDING. WRITTEN RX FOR IMDUR GIVEN TO PT DISCHARGE TO HOME AT 1535 VIA AMB ACCOMP BY SELF
--- NOTE | 2018-04-27 20:40 | DS ---
DATE OF DISCHARGE: 04/27/2018 HISTORY OF PRESENT ILLNESS: The patient is a 62-year-old male patient was admitted with recurrent episode of chest pain that has been going on and off for almost a month now. He has had 3 sets of cardiac enzymes that ruled out myocardial infarction and he has had an echocardiogram, which showed that his left ventricular size is normal, the left ventricular systolic function is normal and the ejection fraction within normal range. The left ventricular ejection fraction is 55%-60%. He has mild concentric left ventricular hypertrophy, but no significant valvular stenosis or regurgitation. He underwent a nuclear stress test, which basically showed that the cardio isotope stress test showed small infarct and small to moderate amount of ischemia involving the mid to distal anterior wall and apical wall, abnormal septal wall motion abnormalities from the postoperative state. Ejection fraction was calculated 60%, intermediate risk for cardiac event; however, Dr. Mcdonald recommended the patient can be discharged home. He added Imdur 30 mg once a day. The patient was discharged home to follow the Cardiology team as an outpatient. PHYSICAL EXAMINATION: GENERAL: When I saw him this afternoon, he looked well and was clearly in no apparent respiratory distress, pale, no jaundice, cyanosis, or thyromegaly. No jugular venous distension. No limb edema. VITAL SIGNS: His heart rate was 86, blood pressure 154/80, temperature was 97.6, respiratory rate 20, and oxygen saturation was 97%. HEAD, EYES, EARS, NOSE AND THROAT: Showed normocephalic, atraumatic. NECK: Supple. HEART: Showed normal first and second sounds. No gallop, rub or murmur. CHEST: Clear to auscultation. No crepitation or rhonchi. ABDOMEN: Distended, soft, nontender. No guarding or rigidity. No organomegaly. Hernial orifice intact. Bowel sounds normal. NEUROLOGIC: He was awake, alert, responding appropriately. Cranial nerves are intact. He moves extremities without difficulty, ambulates without assistance or assistive devices. LABORATORY DATA: Showed serum sodium 130, potassium 4, chloride 97, bicarbonate 27, anion gap of 6, BUN 10, creatinine 1, estimated GFR was 75 and then minute. His glucose was 86, calcium was 8.9, and magnesium was 1.7. Serum triglycerides were 53, total cholesterol 100, LDL cholesterol 47, VLDL was 10, and HDL cholesterol of 43 and the ratio was 2. White cell count was 7000, hemoglobin 15, hematocrit 44, MCV 85 and platelet count of 198,000. DISCHARGE MEDICATIONS: He was discharged home to continue on following medications: Vitamin D 1000 international units once a day, citalopram hydrobromide 20 mg at bedtime, metoclopramide 10 mg twice a day, metoprolol tartrate 25 mg, he takes 12.5 twice a day, naproxen 550 mg 3 times a day with meals, simvastatin 20 mg at bedtime, sitagliptin phosphate/metformin for Janumet one tablet twice a day. We added also Imdur 30 mg once a day. FINAL DISCHARGE DIAGNOSES: 1. Chest pain, myocardial infarction ruled out. 2. Hypertension. 3. Hyperlipidemia. 4. Coronary artery disease, status post coronary artery bypass graft about 5 years ago. 5. History of diverticulitis. RAJNI BAKER MD DR: HILARIO/soni JOB#: [id number] / [id number]
[2018-04-28 02:11] LABS: HEMOGLOBIN A1C 5.6 % (4.8-5.6)
[2018-04-28] MEDS ORDERED: ISOSORBIDE MONONITRATE ER 30 MG TAB.ER.24H PO SCH (09:00)
== END 2018-04-27 15:35 | disposition home or self-care (01) ==
LOC: ER 11:29 → 1 SOUTH 12:53 → INTOOBSV 12:53
PROVIDERS: ADMIT Internal Medicine; ATTEND Internal Medicine
DX: R07.89 Other chest pain (principal); I10 Essential (primary) hypertension; E78.5 Hyperlipidemia, unspecified; E11.51 Type 2 diabetes mellitus with diabetic peripheral angiopathy without gangrene; F17.200 Nicotine dependence, unspecified, uncomplicated; I25.10 Atherosclerotic heart disease of native coronary artery without angina pectoris; I65.29 Occlusion and stenosis of unspecified carotid artery; Z82.0 Family history of epilepsy and other diseases of the nervous system; Z82.49 Family history of ischemic heart disease and other diseases of the circulatory system; Z83.3 Family history of diabetes mellitus; Z95.1 Presence of aortocoronary bypass graft; Z96.659 Presence of unspecified artificial knee joint; Z79.899 Other long term (current) drug therapy
CPT/HCPCS: 36415; 71045; 78452; 80048; 80053; 80061; 82553; 82947; 83036; 83690; 83735; 83880; 84484; 85025; 85610; 85730; 93005; 93017; 93306; 93880; 96360; 96361; 99285; A9500; G0378; J2785; J8597; 96374; 96375; 96376; G0379; J7030

== ENCOUNTER → 2020-07-16 | Outpatient (CLI) | payer OTHER ==
[~2020-07-16] MED LIST: CHOL10003 PO; CITA20TA6 PO; METO10TA81 PO; METO25TA4 PO; NAPR-677 PO; SIMV20TA18 PO; SITA1TAB11 PO
--- NOTE | 2020-07-17 08:31 | RAD ---
C-spine 3 views INDICATION: Neck pain FINDINGS: Grade 1 anterolisthesis of C6 on C7 of 7 mm is present along with minimal anterolisthesis of C5 on C6 of 1 to 2 mm. Lateral masses of C1 align with C2. The bones show sclerosis in the facet joints in the mid cervical spine and endplate sclerosis at C6-C7 where endplate irregularity is also noted along with superior endplate deformity at C7. The C6 inferior endplate is indistinct. An acute fracture is not seen. The discs show marked disc space narrowing at C6-C7 and less profound disc space narrowing at C5-C6. Soft tissues show surgical clips in the left neck and sternotomy wires. No significant prevertebral soft tissue swelling is identified. IMPRESSION: Significant endplate degenerative changes at C6-C7 with 7 mm of anterolisthesis and associated endplate sclerosis with indistinct margins. This is likely a chronic process resulting in some degree of central canal stenosis. More detailed evaluation with CT or MRI is recommended. Electronically signed by: Lizeth Packer MD (07/17/2020 8:28 AM) [id number]
== END | disposition home or self-care (01) ==
LOC: DXRAD 13:08
PROVIDERS: ATTEND Psychiatry & Neurology Neurology
DX: M47.812 Spondylosis without myelopathy or radiculopathy, cervical region (principal); M43.12 Spondylolisthesis, cervical region; M48.02 Spinal stenosis, cervical region
CPT/HCPCS: 72040

== ENCOUNTER → 2021-11-20 | Outpatient (CLI) | payer OTHER ==
--- NOTE | 2021-11-20 09:31 | RAD ---
XR CHEST 2V History: Reason: GENERAL ABDOMEN PAIN, PLEURAL EFFUSION / Spl. Instructions: / History: Comparison: April 25, 2018 Findings: No consolidation or pleural effusion. Normal heart size. No pneumothorax. Prior median sternotomy. Impression: 1. No acute cardiopulmonary process. Electronically signed by: Hitesh Maldonado DO (11/20/2021 9:29 AM) [id number]
--- NOTE | 2021-11-20 09:32 | RAD ---
XR ABDOMEN 2V History: Reason: GENERAL ABDOMEN PAIN, PLEURAL EFFUSION / Spl. Instructions: / History: Technique: Upright and supine views the abdomen. Comparison: None. Findings: Imaged lung bases are unremarkable. Minimal small bowel gas. Air and stool throughout the colon. Surg ical clips right upper quadrant. Vascular calcifications. Multilevel lumbar spondylosis. Impression: 1. Nonobstructed bowel gas pattern. Electronically signed by: Hitesh Maldonado DO (11/20/2021 9:29 AM) [id number]
== END ==
LOC: RAD 08:53
PROVIDERS: ATTEND Specialist
DX: R10.84 Generalized abdominal pain (principal); J91.8 Pleural effusion in other conditions classified elsewhere; M47.816 Spondylosis without myelopathy or radiculopathy, lumbar region
CPT/HCPCS: 71046; 74019